=== PATIENT | male | born 2000 | race Caucasian/White ===

== ENCOUNTER 2021-03-16 04:01 | Emergency (ER) | payer OTHER, BC ==
--- NOTE | 2021-03-16 05:37 | PHYS DOC ---
Adult General Chief Complaint Chief Complaint: NAUSEA/VOMITING/DIARRHEA HPI HPI The patient is a 20-year-old male with a history of ADHD who is otherwise healthy. He presents for reevaluation of right-sided throat discomfort with onset over the past few days. Associated nausea. No associated fevers, vo miting, upper respiratory congestion/rhinorrhea, cough, trouble with secretions, change in voice, shortness of breath. Patient visited an urgent care yesterday and was prescribed Augmentin and a Medrol Dosepak. Mom brings him back in because she is concerned that he has been vomiting up the medication. Vital signs are appropriate here and the patient is in no acute distress. (JOSE FREEMAN MD) Review of Systems Review of Systems A 12 point review of systems was completed and was negative except where noted in HPI above. (JOSE FREEMAN MD) Current Medications Current Medications Current Medications Medications (Trade) Dose Ordered Sig/Carmelo Start Time Stop Time Status Last Admin Dose Admin Ampicillin Sodium/ Sulbactam Sodium 3 gm/Sodium Chloride 100 ml @ 200 mls/hr 1X ONCE 03/16/21 07:00 03/16/21 07:29 DC 03/16/21 06:43 200 MLS/HR Dexamethasone Sodium Phosphate (Decadron) 10 mg 1X ONCE 03/16/21 07:00 03/16/21 07:01 DC 03/16/21 06:22 10 MG Diphenhydramine HCl (Benadryl) 50 mg 1X ONCE 03/16/21 07:15 03/16/21 07:16 DC 03/16/21 07:09 50 MG Ketorolac Tromethamine (Toradol 30mg Vial) 30 mg 1X ONCE 03/16/21 07:00 03/16/21 07:01 DC 03/16/21 06:23 30 MG Metoclopramide HCl (Reglan Vial) 10 mg 1X ONCE 03/16/21 07:00 03/16/21 07:01 DC 03/16/21 06:23 10 MG Morphine Sulfate (Morphine Sulfate) 2 mg 1X ONCE 03/16/21 07:00 03/16/21 07:01 DC 03/16/21 06:24 2 MG Sodium Chloride 1,000 ml @ 1,000 mls/hr 1X ONCE 03/16/21 07:00 03/16/21 07:59 03/16/21 06:24 1,000 MLS/HR (ROXIE FERNANDEZ DO) Allergies Allergies Allergies Coded Allergies Type Severity Reaction Last Updated Verified metoclopramide Allergy Intermediate 03/16/21 Yes (ROXIE FERNANDEZ DO) Physical Exam Physical Exam 20-year-old male appearing nontoxic and in no acute distress. Head is normocephalic and atraumatic. Neck is supple and nontender. No cervical lymphadenopathy. No neck masses or lesions. No stiffness/rigidity/meningismus seen and patient ranges his neck fully in all dimensions without discomfort or distress. Oropharynx is moist. Mild right-sided tonsillar erythema and swelling without uvular deviation, change in voice, difficulty with secretions, trismus, shortness of breath. Lungs are clear to auscultation at all stations. There is a normal S1 and S2 without rubs or gallops and capillary refill is appropriate, less than 2 seconds globally. Abdomen is soft, nontender and n ondistended. Skin is warm and dry and without cyanosis, clubbing or edema. Psychiatrically, the patient demonstrates appropriate mood and affect and is alert. (JOSE FREEMAN MD) Current Patient Data Vital Signs Vital Signs Date Time Temp Pulse Resp B/P (MAP) Pulse Ox O2 Delivery O2 Flow Rate FiO2 03/16/21 06:24 18 100 Room Air (ROXIE FERNANDEZ DO) EKG EKG [] (JOSE FREEMAN MD) Radiology/Procedures Radiology/Procedures [] (JOSE FREEMAN MD) Course & Med Decision Making Course & Med Decision Making Well-appearing 20-year-old male presenting for reevaluation of right-sided throat discomfort. Already on Augmentin and a Medrol Dosepak for what appears to be a mild right tonsillar/peritonsillar cellulitis versus a punctate right peritonsillar abscess. Size is minimal on exam and no clear indication for I&D procedure right now. Patient is mostly here because he has been vomiting and because he states that swallowing his own spit makes him nauseous. Has Zofran at home which has not been working. He is able to tolerate his secretions very well. Will place IV and give IV dexamethasone, Toradol, Reglan and a dose of IV Unasyn. We will then reevaluate. If symptoms improve and patient is able to tolerate p.o., plan for home with additional antinausea medication to continue Augmentin and follow-up closely with ENT in the office. Patient and his mother understand and agree with this plan of care. 0600: Transition of care to Dr. Simmons pending therapy as above and reevaluation for disposition. (JOSE FREEMAN MD) Dragon Disclaimer Dragon Disclaimer This electronic medical record was generated, in whole or in part, using a voice recognition dictation system. (JOSE FREEMAN MD) Departure Departure Impression: Primary Impression: Peritonsillar cellulitis Disposition: HOME / SELF CARE / HOMELESS Condition: STABLE Referrals: UNKNOWN PCP NAME (PCP) SERENA HERRON MD Patient Instructions: Peritonsillar Abscess, [id number] Scripts Promethazine Hcl (PROMETHAZINE HCL) 25 Mg Supp.rect 25 MG RC Q6H PRN for NAUSEA/VOMITING for 3 Days, #12 SUPP.RECT Prov: ROXIE FERNANDEZ DO 03/16/21 Promethazine Hcl (PROMETHAZINE HCL) 12.5 Mg Tablet 1 TAB PO Q6-8HRS for nausea for 5 Days, #20 TAB 0 Refills Prov: ROXIE FERNANDEZ DO 03/16/21 JOSE FREEMAN MD Mar 16, 2021 05:37 ROXIE FERNANDEZ DO Mar 16, 2021 07:22
[2021-03-16 07:00] VITALS: BP 138/68
[2021-03-16] MEDS ORDERED: DEXAMETHASONE SOD PHOS 4 MG/ML VIAL IVP ONE (07:00)
[2021-03-16] MEDS ORDERED: AMPICILLIN/SULBACTAM 3 GM in IV NORMAL SALINE 100ML 100 ML IV ONE (07:00)
[2021-03-16] MEDS ORDERED: METOCLOPRAMIDE HCL 10 MG/2 ML VIAL. IVP ONE (07:00)
[2021-03-16] MEDS ORDERED: IV NORMAL SALINE 1000ML BAG 1,000 ML IV ONE (07:00)
[2021-03-16] MEDS ORDERED: MORPHINE SULFATE 2 MG/ML INJ. IVP ONE (07:00)
[2021-03-16] MEDS ORDERED: KETOROLAC 30 MG/ML VIAL. IVP ONE (07:00)
[2021-03-16] MEDS ORDERED: diphenhydrAMINE 50 MG/ML VIAL IVP ONE (07:15)
[2021-03-16] MEDS ORDERED: PROM25SU33 RC (07:25)
[2021-03-16] MEDS ORDERED: PROM12.58 PO (07:25)
== END 2021-03-16 07:34 | disposition home or self-care (01) ==
LOC: ER 04:01
DX: J36 Peritonsillar abscess (principal); R11.2 Nausea with vomiting, unspecified; R19.7 Diarrhea, unspecified; F90.9 Attention-deficit hyperactivity disorder, unspecified type; Z88.1 Allergy status to other antibiotic agents
CPT/HCPCS: 96365; 96375; 99285; J0295; J1100; J1200; J1885; J2270; J2765; J7030